=== PATIENT | female | born 1950 | race Caucasian/White ===

== ENCOUNTER 2021-10-20 07:00 | Day surgery (SDC) | payer MEDICARE, BC ==
[~2021-10-20 07:00] MED LIST: Lactated Ringers 1,000 ML IV SCH; Lactated Ringers 1,000 ML ONE; Lidocaine 1% 5 ML VIAL ONE; Lidocaine 1%/Sod Bicarbonate in NS 8.4% 1 ML Syringe IDERM PRN; Midazolam 1 MG/ML 2 ML SDV ONE; Morphine 8 MG, EPINEPHrine 0.3 MG, Cefuroxime 750 MG, Ketorolac 30 MG, Sodium Chloride ... PRN; Propofol 200 MG/20 ML SDV ONE; Sodium Chloride 0.9% 10 ML Syringe FLUSH PRN; Sodium Chloride 0.9% 10 ML Syringe FLUSH SCH; Vancomycin 1 GM SDV ONE; ceFAZolin 2 GM Vial ONE; fentaNYL 100 MCG/2 ML SDV ONE
[2021-10-20] MEDS ORDERED: ePHEDrine 50 MG/ML SDV ONE (08:17)
[2021-10-20] MEDS ORDERED: HYDROmorphone 0.5 MG/0.5 ML Syringe IVPUSH PRN (08:34)
[2021-10-20] MEDS ORDERED: fentaNYL 100 MCG/2 ML SDV IVPUSH PRN (08:34)
[2021-10-20] MEDS ORDERED: Ondansetron 4 MG/2 ML SDV IVPUSH PRN (08:34)
[2021-10-20] MEDS ORDERED: Dexamethasone 4 MG/ML 5 ML MDV ONE (08:35)
[2021-10-20] MEDS ORDERED: Ondansetron 4 MG/2 ML SDV ONE (09:11)
[2021-10-20] MEDS ORDERED: Ketorolac 15 MG/ML SDV ONE (09:11)
== END 2021-10-20 13:50 | disposition home or self-care (01) ==
LOC: JD.SDS 07:00
PROVIDERS: ATTEND Orthopaedic Surgery
DX: M16.11 Unilateral primary osteoarthritis, right hip (principal); F41.9 Anxiety disorder, unspecified; Z91.011 Allergy to milk products; Z79.899 Other long term (current) drug therapy; Z98.890 Other specified postprocedural states
CPT/HCPCS: 0055T; 27130; 36415; 73501; 86850; 86900; 86901; 97110; 97116; 97161; C1713; C1776; J0171; J0690; J0697; J1100; J1885; J2250; J2270; J2405; J2704; J3010; J3370; J7120; 01214

== ENCOUNTER 2023-10-26 07:15 | Day surgery (SDC) | payer MEDICARE, BC ==
[~2023-10-26 07:15] MED LIST changes: -Lactated Ringers 1,000 ML IV SCH; -Lactated Ringers 1,000 ML ONE; -Lidocaine 1% 5 ML VIAL ONE; -Lidocaine 1%/Sod Bicarbonate in NS 8.4% 1 ML Syringe IDERM PRN; -Morphine 8 MG, EPINEPHrine 0.3 MG, Cefuroxime 750 MG, Ketorolac 30 MG, Sodium Chloride ... PRN; +Ondansetron 4 MG/2 ML SDV ONE; -Vancomycin 1 GM SDV ONE
[2023-10-26] MEDS ORDERED: Bupivacaine 0.5% 30 ML SDV ONE (07:20)
[2023-10-26] MEDS: Lactated Ringers 1,000 ML IV SCH (07:45)
[2023-10-26] MEDS ORDERED: Lidocaine 1% 4 ML ONE (08:18)
[2023-10-26] MEDS ORDERED: Lidocaine 1% 5 ML VIAL ONE ×2 (08:18)
[2023-10-26] MEDS: Bupivacaine 0.25% 10 ML SDV ONE (09:09)
== END 2023-10-26 09:45 | disposition home or self-care (01) ==
LOC: JD.SDS 07:15
PROVIDERS: ATTEND Orthopaedic Surgery
DX: D36.7 Benign neoplasm of other specified sites (principal)
CPT/HCPCS: 11401; J0665; J0690; J2250; J2704; J3010; J7120; 00400; 88305; 99100; J2405; J3490